=== PATIENT | female | born 1945 | race Two or more races ===

== ENCOUNTER 2017-07-04 07:27 | Outpatient (CLI) | payer OTHER ==
[~2017-07-04 07:27] MED LIST: GLIMEPIRIDE2 MG
== END 2017-07-04 09:19 | disposition home or self-care (01) ==
LOC: LAB 07:27
DX: I10 Essential (primary) hypertension (principal); E11.9 Type 2 diabetes mellitus without complications; E03.8 Other specified hypothyroidism; E78.2 Mixed hyperlipidemia; D64.89 Other specified anemias; E11.65 Type 2 diabetes mellitus with hyperglycemia; Z85.3 Personal history of malignant neoplasm of breast; Z90.13 Acquired absence of bilateral breasts and nipples; G58.0 Intercostal neuropathy; C50.412 Malignant neoplasm of upper-outer quadrant of left female breast

== ENCOUNTER 2017-09-04 06:33 | Outpatient (CLI) | payer OTHER | END 2017-09-04 06:49 | disposition home or self-care (01) | LOC: LAB 06:33 | DX: E11.9 Type 2 diabetes mellitus without complications (principal) ==

== ENCOUNTER 2017-11-02 07:20 | Outpatient (CLI) | payer OTHER | END 2017-11-02 07:36 | disposition home or self-care (01) | LOC: LAB 07:20 | DX: I10 Essential (primary) hypertension (principal); E11.9 Type 2 diabetes mellitus without complications; E03.8 Other specified hypothyroidism; E78.2 Mixed hyperlipidemia; R82.79 Other abnormal findings on microbiological examination of urine ==

== ENCOUNTER → 2018-01-05 09:29 | Outpatient (CLI) | payer OTHER | END | disposition home or self-care (01) | LOC: LAB 09:29 | DX: D64.89 Other specified anemias (principal); E11.65 Type 2 diabetes mellitus with hyperglycemia; E55.0 Rickets, active; M81.0 Age-related osteoporosis without current pathological fracture; Z90.13 Acquired absence of bilateral breasts and nipples; G58.0 Intercostal neuropathy; E72.89 Other specified disorders of amino-acid metabolism ==

== ENCOUNTER 2018-03-13 15:06 | Emergency (ER) | payer OTHER ==
[~2018-03-13] VITALS: Ht 152.4 cm; Wt 72.1 kg
[2018-03-13] MEDS ORDERED: LIPITOR20 MG (15:33)
[2018-03-13] MEDS ORDERED: GLIMEPIRIDE4 MG (15:33)
== END 2018-03-13 20:47 | disposition home or self-care (01) ==
LOC: ER 15:06
DX: S86.811A Strain of other muscle(s) and tendon(s) at lower leg level, right leg, initial encounter (principal); E11.65 Type 2 diabetes mellitus with hyperglycemia; X50.0XXA Overexertion from strenuous movement or load, initial encounter; Y93.B1 Activity, exercise machines primarily for muscle strengthening; Y92.098 Other place in other non-institutional residence as the place of occurrence of the external cause; Y99.8 Other external cause status

== ENCOUNTER 2018-03-30 07:19 | Outpatient (CLI) | payer OTHER ==
[~2018-03-30 07:19] MED LIST changes: +GLIMEPIRIDE4 MG; +LIPITOR20 MG
== END 2018-03-30 07:25 | disposition home or self-care (01) ==
LOC: RAD 07:19
DX: M25.561 Pain in right knee (principal); M25.562 Pain in left knee

== ENCOUNTER 2018-03-31 14:30 | Outpatient (CLI) | payer OTHER | END 2018-03-31 14:38 | disposition home or self-care (01) | LOC: MRI 14:30 | DX: M25.561 Pain in right knee (principal) | CPT/HCPCS: 73721 ==

== ENCOUNTER 2018-04-23 09:33 | Outpatient (CLI) | payer OTHER | END 2018-04-23 10:11 | disposition home or self-care (01) | LOC: LAB 09:33 | DX: I10 Essential (primary) hypertension (principal); E11.9 Type 2 diabetes mellitus without complications; E03.8 Other specified hypothyroidism; E78.2 Mixed hyperlipidemia; K92.1 Melena; N39.0 Urinary tract infection, site not specified; Z12.11 Encounter for screening for malignant neoplasm of colon; B99.8 Other infectious disease ==

== ENCOUNTER 2018-06-09 07:23 | Outpatient (CLI) | payer OTHER | END 2018-06-09 16:33 | disposition home or self-care (01) | LOC: LAB 07:23 | DX: D84.8 Other specified immunodeficiencies (principal); R74.0 Nonspecific elevation of levels of transaminase and lactic acid dehydrogenase [LDH]; E11.65 Type 2 diabetes mellitus with hyperglycemia; C50.411 Malignant neoplasm of upper-outer quadrant of right female breast; E55.9 Vitamin D deficiency, unspecified; C56.1 Malignant neoplasm of right ovary ==

== ENCOUNTER → 2018-08-06 07:31 | Outpatient (CLI) | payer OTHER | END | disposition home or self-care (01) | LOC: LAB 07:31 | DX: E03.8 Other specified hypothyroidism (principal); E78.2 Mixed hyperlipidemia; E11.9 Type 2 diabetes mellitus without complications; I10 Essential (primary) hypertension ==

== ENCOUNTER → 2018-08-18 | Outpatient (CLI) | payer OTHER | END | disposition home or self-care (01) | LOC: NUCLEAR 15:00 | DX: M25.561 Pain in right knee (principal); M25.562 Pain in left knee; M25.461 Effusion, right knee; M25.462 Effusion, left knee; M79.662 Pain in left lower leg; M79.661 Pain in right lower leg ==

== ENCOUNTER 2018-11-20 07:32 | Outpatient (CLI) | payer OTHER | END 2018-11-20 07:38 | disposition home or self-care (01) | LOC: LAB 07:32 | DX: I10 Essential (primary) hypertension (principal); E11.9 Type 2 diabetes mellitus without complications; E03.8 Other specified hypothyroidism; E78.2 Mixed hyperlipidemia; D64.89 Other specified anemias; R74.0 Nonspecific elevation of levels of transaminase and lactic acid dehydrogenase [LDH]; C50.412 Malignant neoplasm of upper-outer quadrant of left female breast; E11.65 Type 2 diabetes mellitus with hyperglycemia; E55.9 Vitamin D deficiency, unspecified ==

== ENCOUNTER 2019-02-08 10:16 | Emergency (ER) | payer OTHER ==
[~2019-02-08] VITALS: Ht 152.4 cm; Wt 72.1 kg
[2019-02-08] MEDS ORDERED: JANUMET 50-5001 EACH PO (10:50)
== END 2019-02-08 11:48 | disposition home or self-care (01) ==
LOC: ER 10:16
DX: S61.254A Open bite of right ring finger without damage to nail, initial encounter (principal); W54.0XXA Bitten by dog, initial encounter; Y93.89 Activity, other specified; Y92.018 Other place in single-family (private) house as the place of occurrence of the external cause; Y99.8 Other external cause status

== ENCOUNTER 2019-03-21 07:15 | Outpatient (CLI) | payer OTHER ==
[~2019-03-21 07:15] MED LIST changes: +JANUMET 50-5001 EACH PO
== END 2019-03-21 07:20 | disposition home or self-care (01) ==
LOC: LAB 07:15
DX: I10 Essential (primary) hypertension (principal); E11.9 Type 2 diabetes mellitus without complications; E03.8 Other specified hypothyroidism; E78.2 Mixed hyperlipidemia

== ENCOUNTER → 2019-06-24 08:16 | Outpatient (CLI) | payer OTHER | END | disposition home or self-care (01) | LOC: LAB 08:16 | DX: I10 Essential (primary) hypertension (principal); E03.8 Other specified hypothyroidism; E78.2 Mixed hyperlipidemia; D64.89 Other specified anemias; E11.65 Type 2 diabetes mellitus with hyperglycemia; C50.411 Malignant neoplasm of upper-outer quadrant of right female breast; E55.9 Vitamin D deficiency, unspecified ==

== ENCOUNTER 2020-05-02 13:01 | Outpatient (CLI) | payer OTHER | END 2020-05-02 13:02 | disposition home or self-care (01) | LOC: LAB 13:01 | DX: C83.89 Other non-follicular lymphoma, extranodal and solid organ sites (principal) ==

== ENCOUNTER 2020-05-08 09:12 | Outpatient (CLI) | payer OTHER | END 2020-05-08 09:23 | disposition home or self-care (01) | LOC: RAD 09:12 | DX: M75.102 Unspecified rotator cuff tear or rupture of left shoulder, not specified as traumatic (principal) ==

== ENCOUNTER → 2020-05-21 | Outpatient (CLI) | payer OTHER | END | disposition home or self-care (01) | LOC: PPH VACUNA | PROVIDERS: ATTEND Emergency Medicine Pediatric Emergency Medicine | DX: Z23 Encounter for immunization (principal) ==

== ENCOUNTER → 2020-06-11 | Outpatient (CLI) | payer OTHER | END | disposition home or self-care (01) | LOC: PPH VACUNA | PROVIDERS: ATTEND Emergency Medicine Pediatric Emergency Medicine | DX: Z23 Encounter for immunization (principal) ==

== ENCOUNTER 2020-09-21 08:36 | Outpatient (CLI) | payer OTHER | END 2020-09-21 08:39 | disposition home or self-care (01) | LOC: LAB 08:36 | PROVIDERS: ATTEND Internal Medicine Cardiovascular Disease | DX: I10 Essential (primary) hypertension (principal); E11.9 Type 2 diabetes mellitus without complications; E03.8 Other specified hypothyroidism; E78.2 Mixed hyperlipidemia; Z12.11 Encounter for screening for malignant neoplasm of colon; E55.9 Vitamin D deficiency, unspecified ==

== ENCOUNTER → 2021-02-16 07:14 | Outpatient (CLI) | payer OTHER | END | disposition home or self-care (01) | LOC: LAB 07:14 | PROVIDERS: ATTEND Internal Medicine Cardiovascular Disease | DX: I10 Essential (primary) hypertension (principal); E11.9 Type 2 diabetes mellitus without complications; E03.8 Other specified hypothyroidism; E78.2 Mixed hyperlipidemia ==

== ENCOUNTER 2021-06-04 08:19 | Outpatient (CLI) | payer OTHER | END 2021-06-04 08:26 | disposition home or self-care (01) | LOC: LAB 08:19 | PROVIDERS: ATTEND Internal Medicine Cardiovascular Disease | DX: E11.9 Type 2 diabetes mellitus without complications (principal); I10 Essential (primary) hypertension; E03.9 Hypothyroidism, unspecified; E78.2 Mixed hyperlipidemia; Z12.11 Encounter for screening for malignant neoplasm of colon; E55.9 Vitamin D deficiency, unspecified ==

== ENCOUNTER → 2022-02-22 07:22 | Outpatient (CLI) | payer OTHER | END | disposition home or self-care (01) | LOC: LAB 07:22 | PROVIDERS: ATTEND Internal Medicine Cardiovascular Disease | DX: I10 Essential (primary) hypertension (principal); E11.9 Type 2 diabetes mellitus without complications; E03.9 Hypothyroidism, unspecified; E78.2 Mixed hyperlipidemia ==

== ENCOUNTER → 2022-02-27 | Outpatient (CLI) | payer OTHER | END | disposition home or self-care (01) | LOC: NUCLEAR 12:33 | PROVIDERS: ATTEND Internal Medicine Cardiovascular Disease | DX: M81.0 Age-related osteoporosis without current pathological fracture (principal); E55.9 Vitamin D deficiency, unspecified; Z88.5 Allergy status to narcotic agent; Z88.8 Allergy status to other drugs, medicaments and biological substances; Z91.041 Radiographic dye allergy status ==

== ENCOUNTER 2022-06-25 13:08 | Outpatient (CLI) | payer OTHER ==
[~2022-06-25 13:08] MED LIST changes: +AMOX-CLAV 875-1 EACH PO; +CYMBALTA60 MG PO; +GLIMEPIRIDE1 MG; +GLIMEPIRIDE4 MG PO; +INTESTINEX680 M1 PO; +LIPITOR20 MG PO; +LYRICA50 MG PO; +MOTRIN800 MG PO; +NABUMETONE500 MG PO; +NABUMETONE750 MG PO; +NEURONTIN300 MG PO; +NORFLEX100MG PO; +PERCOCET 5/3251 TAB PO
== END 2022-06-25 13:20 | disposition home or self-care (01) ==
LOC: RAD 13:08
PROVIDERS: ATTEND Internal Medicine Cardiovascular Disease
DX: M12.9 Arthropathy, unspecified (principal)

== ENCOUNTER 2022-08-09 07:54 | Outpatient (CLI) | payer OTHER | END 2022-08-09 08:04 | disposition home or self-care (01) | LOC: LAB 07:54 | PROVIDERS: ATTEND Internal Medicine Cardiovascular Disease | DX: I10 Essential (primary) hypertension (principal); E11.9 Type 2 diabetes mellitus without complications; E03.9 Hypothyroidism, unspecified; E78.2 Mixed hyperlipidemia; K92.0 Hematemesis; Z12.11 Encounter for screening for malignant neoplasm of colon ==

== ENCOUNTER 2022-12-06 08:37 | Outpatient (CLI) | payer OTHER ==
[2022-12-06 09:43] LABS: MEAN CELL VOLUME 91.7 fL (80.00-100.00); MEAN CORPUSCULAR HEMOGLOBIN 31.4 pg (27.00-32.0); MEAN CORPUSCULAR HGB CONC 34.3 g/dl (32.0-36.0); PLATELET COUNT 237 K/uL (150-450); RED BLOOD COUNT 4.47 M/uL (4.00-6.00); RED CELL DISTRIBUTION WIDTH 13.8 % (11.5-14.5)
[2022-12-06 10:10] LABS: BILIRUBIN TOTAL 0.84 mg/dL (0.3-1.2); CALCIUM 9.8 mg/dL (8.5-10.1); CREATININE SERUM 0.78 mg/dL (0.55-1.02); GFR 71.81; POTASSIUM 4.28 mEq/L (3.5-5.1)
== END 2022-12-06 08:39 | disposition home or self-care (01) ==
LOC: LAB 08:37
PROVIDERS: ATTEND Internal Medicine Cardiovascular Disease
DX: E03.9 Hypothyroidism, unspecified (principal); I10 Essential (primary) hypertension; E78.2 Mixed hyperlipidemia; E11.9 Type 2 diabetes mellitus without complications

== ENCOUNTER 2023-05-23 08:33 | Outpatient (CLI) | payer OTHER ==
[2023-05-23 09:53] LABS: HEMATOCRIT 41.5 % (36.0-45.00); HEMOGLOBIN 13.8 g/dL (12.0-15.00); MEAN CELL VOLUME 93.9 fL (80.00-100.00); MEAN CORPUSCULAR HEMOGLOBIN 31.3 pg (27.00-32.0); MEAN CORPUSCULAR HGB CONC 33.3 g/dl (32.0-36.0); PLATELET COUNT 242 K/uL (150-450); RED BLOOD COUNT 4.42 M/uL (4.00-6.00); RED CELL DISTRIBUTION WIDTH 13.2 % (11.5-14.5)
[2023-05-23 10:59] LABS: ALBUMIN 3.8 gm/dL (3.4-5.0); BILIRUBIN TOTAL 0.62 mg/dL (0.3-1.2); CALCIUM 9.8 mg/dL (8.5-10.1); CHOL HDL RATIO 3.3 (0-5.0); CREATININE SERUM 0.74 mg/dL (0.55-1.02); GFR 76.1; POTASSIUM 4.15 mEq/L (3.5-5.1); T4 TOTAL 7.94 UG/DL (4.8-13.9); TOTAL PROTEIN 6.8 gm/dL (6.4-8.2); TSH 1.63 uIU/mL (0.358-3.74)
[2023-05-23 13:54] LABS: URINE APPEARANCE Turbid; URINE BILIRRUBIN Negative (NEGATIVE); URINE BLOOD Negative; URINE COLOR Dark Yellow; URINE GLUCOSE Negative (NEGATIVE); URINE LEUKOCYTE Trace; URINE NITRATE Negative; URINE PROTEIN Negative (NEGATIVE)
[2023-05-23 13:58] LABS: URINE BACTERIA 4116.2 uL (0.0-1933); URINE RBC 24.8 uL (0.0-20.8); URINE WBC 37.8 uL (0.0-23.2)
[2023-05-23 14:27] LABS: URINE EPITHELIAL CELLS > 201.7 uL (0.0-38.8)
[2023-05-23 14:29] LABS: URINE YEAST MODERATE /hpf
[2023-05-23 14:40] LABS: ob NEGATIVE (NEGATIVE)
[2023-05-24 11:58] LABS: T3 TOTAL 0.929 ng/ml (0.846-2.02); VITAMIN D3 25 HYDROXY 44.13 ng/ml (30-120)
== END 2023-05-23 08:34 | disposition home or self-care (01) ==
LOC: LAB 08:33
PROVIDERS: ATTEND Internal Medicine Cardiovascular Disease
DX: I10 Essential (primary) hypertension (principal); E11.9 Type 2 diabetes mellitus without complications; E03.9 Hypothyroidism, unspecified; E78.2 Mixed hyperlipidemia; E55.9 Vitamin D deficiency, unspecified; Z12.11 Encounter for screening for malignant neoplasm of colon

== ENCOUNTER → 2023-11-26 08:39 | Outpatient (CLI) | payer OTHER ==
[2023-11-26 09:14] LABS: MEAN CORPUSCULAR HGB CONC 34.5 g/dl (32.0-36.0); PLATELET COUNT 364 K/uL (150-450); RED BLOOD COUNT 3.06 M/uL (4.00-6.00); RED CELL DISTRIBUTION WIDTH 14.3 % (11.5-14.5)
[2023-11-26 09:18] LABS: HEMOGLOBIN 9.6 g/dL (12.0-15.00); MEAN CELL VOLUME 91.5 fL (80.00-100.00); MEAN CORPUSCULAR HEMOGLOBIN 31.3 pg (27.00-32.0)
[2023-11-26 10:11] LABS: CALCIUM 9.7 mg/dL (8.5-10.1); CHOL HDL RATIO 3.2 (0-5.0); CREATININE SERUM 0.63 mg/dL (0.55-1.02); GFR 91.63; POTASSIUM 3.89 mEq/L (3.5-5.1); T4 TOTAL 6.58 UG/DL (4.8-13.9); TSH 1.94 uIU/mL (0.358-3.74)
[2023-11-26 11:08] LABS: URINE APPEARANCE Cloudy; URINE BILIRRUBIN Negative (NEGATIVE); URINE BLOOD Negative; URINE COLOR Dark Yellow; URINE GLUCOSE Negative (NEGATIVE); URINE KETONE Trace (NEGATIVE); URINE LEUKOCYTE Moderate; URINE NITRATE Negative; URINE PROTEIN Trace (NEGATIVE); URINE UROBILINOGEN 0.2 E.U./dl
[2023-11-26 11:14] LABS: URINE BACTERIA 234.3 uL (0.0-1933); URINE CAST 2.59 uL (0.0-1.40); URINE EPITHELIAL CELLS 90.9 uL (0.0-38.8); URINE RBC 27.3 uL (0.0-20.8); URINE WBC 552.2 uL (0.0-23.2)
[2023-11-26 11:43] LABS: URINE MUCUS MODERATE; URINE YEAST FEW /hpf
== END | disposition home or self-care (01) ==
LOC: LAB 08:39
PROVIDERS: ATTEND Internal Medicine Cardiovascular Disease
DX: E11.9 Type 2 diabetes mellitus without complications (principal); E03.9 Hypothyroidism, unspecified; I10 Essential (primary) hypertension; E78.2 Mixed hyperlipidemia

== ENCOUNTER 2024-02-23 09:18 | Outpatient (CLI) | payer OTHER ==
[2024-02-23 10:18] LABS: HEMATOCRIT 38.7 % (36.0-45.00); HEMOGLOBIN 12.8 g/dL (12.0-15.00); MEAN CELL VOLUME 87.6 fL (80.00-100.00); MEAN CORPUSCULAR HGB CONC 33.1 g/dl (32.0-36.0); PLATELET COUNT 292 K/uL (150-450); RED BLOOD COUNT 4.42 M/uL (4.00-6.00); RED CELL DISTRIBUTION WIDTH 14.4 % (11.5-14.5)
[2024-02-23 11:18] LABS: ALBUMIN 3.8 gm/dL (3.4-5.0); BILIRUBIN TOTAL 0.6 mg/dL (0.3-1.2); CALCIUM 9.5 mg/dL (8.5-10.1); CHOL HDL RATIO 2.5 (0-5.0); CREATININE SERUM 0.65 mg/dL (0.55-1.02); GFR 88.38; POTASSIUM 4.19 mEq/L (3.5-5.1); T4 TOTAL 8.59 UG/DL (4.8-13.9); TOTAL PROTEIN 6.8 gm/dL (6.4-8.2); TSH 2.1 uIU/mL (0.358-3.74)
[2024-02-24 08:21] LABS: PH,URINE 5.5 (5.0-8.0); URINE APPEARANCE Clear; URINE BILIRRUBIN Negative (NEGATIVE); URINE BLOOD Negative; URINE COLOR Yellow; URINE GLUCOSE Negative (NEGATIVE); URINE KETONE Negative (NEGATIVE); URINE LEUKOCYTE Trace; URINE NITRATE Positive; URINE PROTEIN Negative (NEGATIVE); URINE UROBILINOGEN 0.2 E.U./dl
[2024-02-24 08:36] LABS: URINE BACTERIA 8780.8 uL (0.0-1933); URINE EPITHELIAL CELLS 7.5 uL (0.0-38.8); URINE RBC 9.8 uL (0.0-20.8); URINE WBC 40.8 uL (0.0-23.2)
[2024-02-24 09:08] LABS: URINE CRYSTALS FEW /HPF
== END 2024-02-23 09:25 | disposition home or self-care (01) ==
LOC: LAB 09:18
PROVIDERS: ATTEND Internal Medicine Cardiovascular Disease
DX: E03.9 Hypothyroidism, unspecified (principal); I10 Essential (primary) hypertension; E11.9 Type 2 diabetes mellitus without complications; E78.2 Mixed hyperlipidemia

== ENCOUNTER 2024-05-25 09:57 | Outpatient (CLI) | payer OTHER | END 2024-05-25 14:42 | disposition home or self-care (01) | LOC: TOM 09:57 → RAD 09:57 | DX: S42.232A 3-part fracture of surgical neck of left humerus, initial encounter for closed fracture (principal) ==

== ENCOUNTER 2024-05-26 11:38 | Outpatient (CLI) | payer OTHER | END 2024-05-26 11:48 | disposition home or self-care (01) | LOC: TOM 11:38 | DX: S42.222A 2-part displaced fracture of surgical neck of left humerus, initial encounter for closed fracture (principal) ==

== ENCOUNTER 2024-06-16 13:42 | Outpatient (CLI) | payer OTHER | END 2024-06-16 13:47 | disposition home or self-care (01) | LOC: RAD 13:42 | DX: S42.232A 3-part fracture of surgical neck of left humerus, initial encounter for closed fracture (principal); X58.XXXA Exposure to other specified factors, initial encounter; Y93.9 Activity, unspecified; Y92.9 Unspecified place or not applicable; Y99.9 Unspecified external cause status ==

== ENCOUNTER 2024-08-18 13:47 | Outpatient (CLI) | payer OTHER | END 2024-08-18 13:55 | disposition home or self-care (01) | LOC: RAD 13:47 | DX: M19.012 Primary osteoarthritis, left shoulder (principal); S42.242A 4-part fracture of surgical neck of left humerus, initial encounter for closed fracture; X58.XXXA Exposure to other specified factors, initial encounter; Y93.9 Activity, unspecified; Y92.9 Unspecified place or not applicable; Y99.9 Unspecified external cause status ==

== ENCOUNTER 2024-11-24 10:34 | Outpatient (CLI) | payer OTHER ==
[2024-11-24 11:06] LABS: URINE APPEARANCE Clear; URINE BILIRRUBIN Negative (NEGATIVE); URINE BLOOD Negative; URINE COLOR Yellow; URINE GLUCOSE Negative (NEGATIVE); URINE KETONE Negative (NEGATIVE); URINE LEUKOCYTE Negative; URINE NITRATE Positive; URINE PROTEIN Negative (NEGATIVE); URINE UROBILINOGEN 0.2 E.U./dl
[2024-11-24 11:07] LABS: URINE EPITHELIAL CELLS 2.2 uL (0.0-38.8); URINE WBC 4.9 uL (0.0-23.2)
[2024-11-24 11:22] LABS: URINE BACTERIA > 9821.5 uL (0.0-1933); URINE CAST 0.00 uL (0.0-1.40); URINE RBC 1.1 uL (0.0-20.8)
[2024-11-24 11:32] LABS: BASO % 0.7 % (0.1-1.2); EOS # 0.06 (0.04-0.54); EOS % 0.9 % (0.7-7.0); LYMPH # 1.72 (1.18-3.74); LYMPH % 25.5 % (19.3-53.1); MEAN PLATELET VOLUME 10.60 fl (9.4-12.4); MONO # 0.45 (0.24-0.82); MONO % 6.7 % (4.7-12.5); NEUT # 4.45 (1.56-6.13); NEUT % 65.9 % (34.0-71.1); RED CELL DISTRIBUTION WIDTH 13.1 % (11.6-14.4)
[2024-11-24 11:45] LABS: ALT/SGPT 18.0 U/L (12-78); AST/SGOT 8.0 U/L (15-37); BILIRUBIN TOTAL 0.9 mg/dL (0.3-1.2); BUN CREA RATIO 16.0 (7.0-25.0); CHOL HDL RATIO 2.8 (0-5.0); CREATININE SERUM 0.69 mg/dL (0.55-1.02); GFR 82.28; GLOBULINA 3.0 G/DL (2.4-3.5); GLUCOSE FASTING 198.0 mg/dL (65-100); HDL 59.0 mg/dl (40-60); LDL 74.0 mg/dl (0-130); OSMOLALITY SERUM 292.0 MOSM/KG (275-295); T4 TOTAL 7.05 UG/DL (4.8-13.9); TSH 1.51 uIU/mL (0.358-3.74); VLDL 32.0 (0-39)
[2024-11-24 12:05] LABS: T3 TOTAL 0.687 ng/ml (0.846-2.02); VITAMIN D3 25 HYDROXY 52.41 ng/ml (30-120)
== END 2024-11-24 10:42 | disposition home or self-care (01) ==
LOC: LAB 10:34
PROVIDERS: ATTEND Internal Medicine Cardiovascular Disease
DX: E11.9 Type 2 diabetes mellitus without complications (principal); I10 Essential (primary) hypertension; E03.9 Hypothyroidism, unspecified; E78.2 Mixed hyperlipidemia; D64.0 Hereditary sideroblastic anemia; Z12.11 Encounter for screening for malignant neoplasm of colon; E55.9 Vitamin D deficiency, unspecified; M81.0 Age-related osteoporosis without current pathological fracture